=== PATIENT | male | born 1980 | race Caucasian/White ===

== ENCOUNTER 2016-05-31 15:00 | Emergency (ER) | payer BC, OTHER ==
[2016-05-31 15:08] VITALS: BP 134/87; RESP 18; TEMP 97.6
--- NOTE | 2016-05-31 15:37 | ED ---
Upper Extremity HPI - General Chief Complaint: Extremity Injury, Upper Stated Complaint: shoulder injury-[facility] Time Seen by Provider: 05/31/16 15:12 Source: patient, RN notes reviewed Mode of arrival: ambulatory Limitations: no limitations - History of Present Illness Initial Comments: Patient is a 36-year-old male presents to the emergency room for evaluation of right shoulder pain. Patient states he was at work and went to go pull at object and felt a sharp pain in his right shoulder. Patient states he has a history of 2 labrum tear surgeries in his right shoulder about 4 years ago. Patient states the surgery was not done in this area. Patient states that after he felt the pain today he was worried that he tore something again and was told by his supervisor type bar and segment to come to the emergency room to be evaluated. Patient states he has pain whenever he tries to move his shoulder. Patient denies taking anything for pain. Patient denies any numbness or tingling in his fingers. Patient states when he tore his labrum 4 years ago the pain was a lot worse than this incident. Patient denies any other injuries or complaints at this time. - Related Data Home Medications Medication Instructions Recorded Confirmed Buprenorphine HCl/Naloxone HCl 0.5 film SUBLINGUAL BID 02/14/15 05/31/16 [Suboxone 8 mg-2 mg Sl Film] Albuterol Inhaler [Ventolin Hfa 1 - 2 puff INHALATION RT-Q6H PRN 05/31/16 Inhaler] Allergies Allergy/AdvReac Type Severity Reaction Status Date / Time meperidine HCl [From Demerol] Allergy Rash/Hives Verified 05/31/16 15:19 shellfish derived [Shellfish] Allergy Swelling Verified 05/31/16 15:19 Review of Systems ROS Statement: Those systems with pertinent positive or pertinent negative responses have been documented in the HPI. ROS Other: All systems not noted in ROS Statement are negative. Past Medical History Past Medical History: Asthma History of Any Multi-Drug Resistant Organisms: None Reported Past Surgical History: Orthopedic Surgery Additional Past Surgical History / Comment(s): rt shoulder Past Psychological History: Anxiety Smoking Status: Former smoker Past Alcohol Use History: None Reported Past Drug Use History: None Reported General Exam - General Exam Comments Initial Comments: Sitting in exam room, no acute distress. Limitations: no limitations General appearance: alert, in no apparent distress Head exam: Present: atraumatic, normocephalic, normal inspection Eye exam: Present: normal appearance ENT exam: Present: normal exam Neck exam: Present: normal inspection Respiratory exam: Absent: respiratory distress Right Shoulder Exam: Present: normal inspection, tenderness (Proximal humerus). Absent: full ROM (Patient can extend about 90 and abduct about 75), swelling, ecchymosis, deformity, crepitus, tenderness over AC joint Upper Arm exam: Present: normal inspection, full ROM. Absent: tenderness Elbow exam: Present: normal inspection, full ROM. Absent: tenderness Neuro motor exam: Present: wrist extension intact Vascular: Present: normal capillary refill (Capillary refill less than 2 seconds ), radial pulse (2+), ulnar pulse (2+) Back exam: Present: normal inspection Neurological exam: Present: alert, oriented X3, CN II-XII intact, normal gait Psychiatric exam: Present: normal affect, normal mood Skin exam: Present: warm, dry, intact, normal color. Absent: rash Course Vital Signs 05/31/16 15:04 Temperature 97.6 F Respiratory 18 Rate Blood Pressure 134/87 Medical Decision Making - Medical Decision Making Patient is a 36-year-old male presents to the emergency room for evaluation of right shoulder pain. Right shoulder x-ray shows no acute findings. Advised patient to follow-up with commodity specialist if symptoms are not improving in 7-10 days. Patient states he understands everything that was discussed with him. Return parameters discussed. Case discussed with Dr. Claire. - Radiology Data Radiology results: report reviewed, image reviewed Disposition Clinical Impression: Right shoulder strain Disposition: HOME SELF-CARE Condition: Good Instructions: Shoulder Sprain (ED), Shoulder Pain (ED) Additional Instructions: Ice on and off for 10-15 minutes for the next 24-48 hours. Take Tylenol or Motrin as needed for pain. Please follow-up with commodity specialist in 7-10 days if symptoms are not improving. If new symptoms develop or symptoms worsen, please return to the ER. Referrals: Shahbaz Duran MD [Primary Care Provider] - 1-2 days Sourav Purcell MD [STAFF PHYSICIAN] - 06/07/16 Time of Disposition: 15:51
--- NOTE | 2016-05-31 15:47 | XR ---
EXAMINATION TYPE: XR shoulder complete RT DATE OF EXAM: 05/31/2016 3:40 PM CLINICAL HISTORY: Right shoulder pain after pushing injury yesterday. TECHNIQUE: Three views of the right shoulder are obtained. COMPARISON: Prior right shoulder x-ray June 25, 2012 FINDINGS: There is no acute fracture/dislocation evident in the right shoulder. Mild spurring at acr omioclavicular joint is redemonstrated. Glenohumeral joint is maintained. The visualized ribs are int act and unremarkable. IMPRESSION: There is no acute fracture or dislocation in the right shoulder.
== END 2016-05-31 16:00 | disposition home or self-care (01) ==
LOC: EC 15:00
DX: S46.911A Strain of unspecified muscle, fascia and tendon at shoulder and upper arm level, right arm, initial encounter (principal); Z91.013 Allergy to seafood; Z87.891 Personal history of nicotine dependence; Z79.899 Other long term (current) drug therapy; X50.9XXA Other and unspecified overexertion or strenuous movements or postures, initial encounter; Y99.8 Other external cause status
CPT/HCPCS: 99283

== ENCOUNTER 2017-02-11 16:20 | Emergency (ER) | payer BC ==
--- NOTE | 2017-02-11 18:01 | ED ---
Male Urogenital HPI - General Chief complaint: Urogenital Stated complaint: Male Time Seen by Provider: 02/11/17 17:27 Source: patient, RN notes reviewed Mode of arrival: ambulatory Limitations: no limitations - History of Present Illness Initial comments: 36-year-old male presents emergency Department chief complaint of urethral discharge. Patient states that it started yesterday. Patient states that that he had a history of this. Patient states he has had a new sexual partner. He states that she is asymptomatic this time. Patient states that he does have a little itchiness at his urethral opening. Denies any sores or lesions pains. Patient denies any abdominal pain denies fevers or chills. - Related Data Home Medications Medication Instructions Recorded Confirmed Buprenorphine HCl/Naloxone HCl 0.5 film SUBLINGUAL BID 02/14/15 02/11/17 [Suboxone 8 mg-2 mg Sl Film] Previous Rx's Medication Instructions Recorded Ciprofloxacin HCl [Cipro] 500 mg PO Q12HR #20 tablet 02/11/17 Allergies Allergy/AdvReac Type Severity Reaction Status Date / Time meperidine HCl [From Demerol] Allergy Rash/Hives Verified 02/11/17 17:48 shellfish derived [Shellfish] Allergy Swelling Verified 02/11/17 17:48 Review of Systems ROS Statement: Those systems with pertinent positive or pertinent negative responses have been documented in the HPI. ROS Other: All systems not noted in ROS Statement are negative. Past Medical History Past Medical History: Asthma History of Any Multi-Drug Resistant Organisms: None Reported Past Surgical History: Orthopedic Surgery Additional Past Surgical History / Comment(s): rt shoulder Past Psychological History: Anxiety Smoking Status: Former smoker Past Alcohol Use History: None Reported Past Drug Use History: None Reported General Exam Limitations: no limitations General appearance: alert, in no apparent distress Head exam: Present: atraumatic, normocephalic, normal inspection Respiratory exam: Present: normal lung sounds bilaterally. Absent: respiratory distress, wheezes, rales, rhonchi, stridor Cardiovascular Exam: Present: regular rate, normal rhythm, normal heart sounds. Absent: systolic murmur, diastolic murmur, rubs, gallop, clicks GI/Abdominal exam: Present: soft, normal bowel sounds. Absent: distended, tenderness, guarding, rebound, rigid exam: Present: normal inspection. Absent: urethral discharge, scrotal swelling, vertical testicular lie Course Vital Signs 02/11/17 17:19 Temperature 98.3 F Pulse Rate 81 Respiratory 18 Rate Blood Pressure 137/87 O2 Sat by Pulse 100 Oximetry Medical Decision Making - Medical Decision Making 36-year-old male presented for urethral drainage. Patient recent UTI/ urethritis. Patient was given Rocephin azithromycin. Patient be discharged on ciprofloxacin. Return parameters were discussed. - Lab Data Lab Results 02/11/17 Range/Units 18:37 Urine Color Yellow Urine Appearance Clear (Clear) Urine pH 6.5 (5.0-8.0) Ur Specific [place] 1.024 (1.001-1.035) Urine Protein Trace H (Negative) Urine Glucose (UA) Negative (Negative) Urine Ketones Negative (Negative) Urine Blood Negative (Negative) Urine Nitrite Negative (Negative) Urine Bilirubin Negative (Negative) Urine Urobilinogen <2.0 (<2.0) mg/dL Ur Leukocyte Esterase Large H (Negative) Urine RBC 4 (0-5) /hpf Urine WBC 50 H (0-5) /hpf Urine Bacteria Occasional H (None) /hpf Urine Mucus Rare H (None) /hpf Urine Yeast (Budding) Rare H (None) /hpf Disposition Clinical Impression: UTI (urinary tract infection), Urethritis Disposition: HOME SELF-CARE Condition: Stable Instructions: Urinary Tract Infection in Men (ED) Additional Instructions: Please return to the Emergency Department if symptoms worsen or any other concerns. Prescriptions: Ciprofloxacin HCl [Cipro] 500 mg PO Q12HR #20 tablet Referrals: Shahbaz Duran MD [Primary Care Provider] - 1-2 days Time of Disposition: 18:46
[2017-02-11 18:43] LABS: Appearance,Urine Clear (Clear); Bacteria,Urine Occasional /hpf; Bilirubin,Urine Negative (Negative); Glucose,Urine (UA) Negative (Negative); Ketones,Urine Negative (Negative); Leukocyte Esterase,Urine Large (Negative); Mucus,Urine Rare /hpf; Nitrite,Urine Negative (Negative); PH, Urine 6.5 (5.0-8.0); Particle Count 957; Protein,Urine Trace (Negative); RBC,Urine 4 /hpf (0-5); Specific Gravity,Urine 1.024 (1.001-1.035); UA Billing (MACRO vs. MICRO) MICRO; Urobilinogen,Urine <2.0 mg/dL (<2.0); WBC,Urine 50 /hpf (0-5)
[2017-02-11] MEDS ORDERED: AZITHROMYCIN 250 MG TAB PO STA (18:44)
[2017-02-11] MEDS ORDERED: cefTRIAXone 250 MG VIAL IM STA (18:44)
[2017-02-11 19:16] VITALS: BP 153/92; PULSE 75; RESP 16; TEMP 97.9
== END 2017-02-11 19:25 | disposition home or self-care (01) ==
LOC: EC 16:20
DX: N34.2 Other urethritis (principal); Z87.891 Personal history of nicotine dependence; Z79.899 Other long term (current) drug therapy; Z88.5 Allergy status to narcotic agent; Z91.013 Allergy to seafood
CPT/HCPCS: 99283 ×2; 96372 ×2; 81001; 87086; J0696; 87491; 87591

== ENCOUNTER → 2020-01-23 | Outpatient (CLI) | payer BC | END | disposition home or self-care (01) | LOC: LABWHC1 10:25 | PROVIDERS: ATTEND Emergency Medicine | DX: Z20.828 Contact with and (suspected) exposure to other viral communicable diseases (principal) ==

== ENCOUNTER → 2020-04-30 | Outpatient (CLI) | payer BC | END | disposition home or self-care (01) | LOC: LABWHC1 12:58 | PROVIDERS: ATTEND Emergency Medicine | DX: Z20.822 Contact with and (suspected) exposure to COVID-19 (principal) | CPT/HCPCS: U0003; C9803; U0005 ==

== ENCOUNTER 2020-09-15 15:20 | Emergency (ER) | payer BC ==
[2020-09-15 15:31] VITALS: RESP 16; TEMP 98.2
--- NOTE | 2020-09-15 15:55 | ED ---
General Adult HPI - General Chief complaint: Chest Pain Stated complaint: Chest Pain/Sore Throat Time Seen by Provider: 09/15/20 15:37 Source: patient, RN notes reviewed, old records reviewed Mode of arrival: ambulatory Limitations: no limitations - History of Present Illness Initial comments: 40-year-old male presents with 2 complaints, he has some suspected ALLERGIC reaction to the vapor from vap pen. He states that he had switched products hand developed some irritation to his throat as well as swollen lymph notes. Taken Benadryl with only minimal improvement. No difficulty breathing. Second complaint of left upper chest pain which is been present for the past several days. This does radiate to the left arm. No previous history of CAD no history of DVT or PE. No cough or fever. No difficulty breathing. No vomiting or diarrhea. - Related Data Home Medications Medication Instructions Recorded Confirmed Buprenorphine HCl/Naloxone HCl 0.5 film SUBLINGUAL BID 02/14/15 02/11/17 [Suboxone 8 mg-2 mg Sl Film] Previous Rx's Medication Instructions Recorded Ciprofloxacin HCl [Cipro] 500 mg PO Q12HR #20 tablet 02/11/17 Allergies Allergy/AdvReac Type Severity Reaction Status Date / Time meperidine HCl [From Demerol] Allergy Rash/Hives Verified 02/11/17 17:48 shellfish derived [Shellfish] Allergy Swelling Verified 02/11/17 17:48 Review of Systems ROS Statement: Those systems with pertinent positive or pertinent negative responses have been documented in the HPI. ROS Other: All systems not noted in ROS Statement are negative. Past Medical History Past Medical History: Asthma History of Any Multi-Drug Resistant Organisms: None Reported Past Surgical History: Orthopedic Surgery Additional Past Surgical History / Comment(s): rt shoulder Past Psychological History: Anxiety Smoking Status: Current every day smoker, Vaper Past Alcohol Use History: None Reported Past Drug Use History: Marijuana General Exam Limitations: no limitations General appearance: alert, in no apparent distress Head exam: Present: atraumatic, normocephalic Eye exam: Present: normal appearance, PERRL ENT exam: Absent: normal oropharynx (There is diffuse pharyngeal erythema, no exudate, no tonsillar swelling) Neck exam: Present: normal inspection. Absent: tenderness, meningismus Respiratory exam: Present: normal lung sounds bilaterally. Absent: respiratory distress, wheezes, rales Cardiovascular Exam: Present: regular rate, normal rhythm GI/Abdominal exam: Present: soft. Absent: distended, tenderness, guarding Extremities exam: Present: normal inspection, normal capillary refill. Absent: pedal edema, calf tenderness Back exam: Present: normal inspection, full ROM Neurological exam: Present: alert, oriented X3. Absent: CN II-XII intact, motor sensory deficit Psychiatric exam: Present: normal affect, normal mood Skin exam: Present: warm, dry, intact. Absent: cyanosis, diaphoretic Course Vital Signs 09/15/20 09/15/20 15:28 15:31 Temperature 98.2 F Pulse Rate 96 Respiratory 18 16 Rate Blood Pressure 142/89 O2 Sat by Pulse 98 Oximetry EKG Findings - EKG Comments: EKG Findings:: EKG: Normal sinus rhythm, left atrial enlargement, rate of 80, [place] interval 150, QRS duration 96, QTC 422, no ST segment elevation Medical Decision Making - Medical Decision Making 40-year-old male who had presented with 2 complaints, some left upper chest pain, atypical in nature, and throat swelling and pain after using a vap pen. Patient does have some pharyngeal erythema, no tonsillar swelling or exudate. Rapid strep negative. He has a normal CBC, normal CMP, negative troponin, nonischemic EKG, chest x-ray negative for pneumothorax or acute finding. Patient reassured. He will use Benadryl for his suspected ALLERGIC pharyngitis or secondary to just irritation. He will abstain from using this tobacco product. Return parameters given patient will follow with primary care physician. - Lab Data Result diagrams: 09/15/20 15:51 09/15/20 15:51 Lab Results 09/15/20 09/15/20 09/15/20 Range/Units 15:51 15:51 15:51 WBC 6.8 (3.8-10.6) k/uL RBC 4.38 (4.30-5.90) m/uL Hgb 13.8 (13.0-17.5) gm/dL Hct 38.8 L (39.0-53.0) % MCV 88.5 (80.0-100.0) fL MCH 31.4 (25.0-35.0) pg MCHC 35.5 (31.0-37.0) g/dL RDW 11.7 (11.5-15.5) % Plt Count 278 (150-450) k/uL MPV 6.6 Neutrophils % 53 % Lymphocytes % 38 % Monocytes % 5 % Eosinophils % 3 % Basophils % 1 % Neutrophils # 3.5 (1.3-7.7) k/uL Lymphocytes # 2.5 (1.0-4.8) k/uL Monocytes # 0.4 (0-1.0) k/uL Eosinophils # 0.2 (0-0.7) k/uL Basophils # 0.0 (0-0.2) k/uL PT 10.3 (9.0-12.0) sec INR 1.0 (<1.2) APTT 24.2 (22.0-30.0) sec Sodium 139 (137-145) mmol/L Potassium 4.3 (3.5-5.1) mmol/L Chloride 103 (98-107) mmol/L Carbon Dioxide 29 (22-30) mmol/L Anion Gap 7 mmol/L BUN 19 (9-20) mg/dL Creatinine 0.90 (0.66-1.25) mg/dL Est GFR (CKD-EPI)AfAm >90 (>60 ml/min/1.73 sqM) Est GFR (CKD-EPI)NonAf >90 (>60 ml/min/1.73 sqM) Glucose 93 (74-99) mg/dL Calcium 9.5 (8.4-10.2) mg/dL Magnesium 2.1 (1.6-2.3) mg/dL Total Bilirubin 0.4 (0.2-1.3) mg/dL AST 32 (17-59) U/L ALT 18 (4-49) U/L Alkaline Phosphatase 60 (38-126) U/L Troponin I (0.000-0.034) ng/mL Total Protein 6.6 (6.3-8.2) g/dL Albumin 4.4 (3.5-5.0) g/dL Lipase 48 (23-300) U/L Group A Strep Rapid (Negative) 09/15/20 09/15/20 Range/Units 15:51 15:51 WBC (3.8-10.6) k/uL RBC (4.30-5.90) m/uL Hgb (13.0-17.5) gm/dL Hct (39.0-53.0) % MCV (80.0-100.0) fL MCH (25.0-35.0) pg MCHC (31.0-37.0) g/dL RDW (11.5-15.5) % Plt Count (150-450) k/uL MPV Neutrophils % % Lymphocytes % % Monocytes % % Eosinophils % % Basophils % % Neutrophils # (1.3-7.7) k/uL Lymphocytes # (1.0-4.8) k/uL Monocytes # (0-1.0) k/uL Eosinophils # (0-0.7) k/uL Basophils # (0-0.2) k/uL PT (9.0-12.0) sec INR (<1.2) APTT (22.0-30.0) sec Sodium (137-145) mmol/L Potassium (3.5-5.1) mmol/L Chloride (98-107) mmol/L Carbon Dioxide (22-30) mmol/L Anion Gap mmol/L BUN (9-20) mg/dL Creatinine (0.66-1.25) mg/dL Est GFR (CKD-EPI)AfAm (>60 ml/min/1.73 sqM) Est GFR (CKD-EPI)NonAf (>60 ml/min/1.73 sqM) Glucose (74-99) mg/dL Calcium (8.4-10.2) mg/dL Magnesium (1.6-2.3) mg/dL Total Bilirubin (0.2-1.3) mg/dL AST (17-59) U/L ALT (4-49) U/L Alkaline Phosphatase (38-126) U/L Troponin I <0.012 (0.000-0.034) ng/mL Total Protein (6.3-8.2) g/dL Albumin (3.5-5.0) g/dL Lipase (23-300) U/L Group A Strep Rapid Negative (Negative) Disposition Clinical Impression: Atypical chest pain, Pharyngitis Disposition: HOME SELF-CARE Condition: Good Instructions (If sedation given, give patient instructions): Chest Pain (ED), Pharyngitis (ED) Is patient prescribed a controlled substance at d/c from ED?: No Referrals: Shahbaz Duran MD [Primary Care Provider] - 1-2 days Time of Disposition: 16:36
[2020-09-15 16:04] LABS: Basophils % (A) 1 %; Eosinophils # (A) 0.2 k/uL (0-0.7); Eosinophils % (A) 3 %; HCT 38.8 % (39.0-53.0); HGB 13.8 gm/dL (13.0-17.5); Lymphocytes # (A) 2.5 k/uL (1.0-4.8); Lymphocytes % (A) 38 %; MCH 31.4 pg (25.0-35.0); MCHC 35.5 g/dL (31.0-37.0); MCV 88.5 fL (80.0-100.0); Mean Platelet Volume 6.6; Monocytes # (A) 0.4 k/uL (0-1.0); Monocytes % (A) 5 %; Neutrophils # (A) 3.5 k/uL (1.3-7.7); Neutrophils % (A) 53 %; Platelet Count 278 k/uL (150-450); RBC 4.38 m/uL (4.30-5.90); RDW 11.7 % (11.5-15.5); WBC 6.8 k/uL (3.8-10.6)
--- NOTE | 2020-09-15 16:06 | XR ---
EXAMINATION TYPE: XR chest 2V DATE OF EXAM: 09/15/2020 COMPARISON: Chest x-ray 02/28/2015 HISTORY: Chest pain TECHNIQUE: Frontal and lateral views of the chest are obtained. FINDINGS: There is no focal air space opacity, pleural effusion, or pneumothorax seen. The cardiac silhouette size is within normal limits. The osseous structures are intact, there is a spinal curva ture. IMPRESSION: No acute cardiopulmonary process.
[2020-09-15 16:09] LABS: Chloride 103 mmol/L (98-107)
[2020-09-15 16:10] LABS: Partial Thromboplastin Time 24.2 sec (22.0-30.0); Prothrombin Time 10.3 sec (9.0-12.0)
[2020-09-15 16:11] LABS: ALT 18 U/L (4-49); AST 32 U/L (17-59); African American GFR (CKD) >90 (>60 ml/min/1.73 sqM); Albumin 4.4 g/dL (3.5-5.0); Alkaline Phosphatase 60 U/L (38-126); Anion Gap 7 mmol/L; Blood Urea Nitrogen 19 mg/dL (9-20); Calcium 9.5 mg/dL (8.4-10.2); Carbon Dioxide 29 mmol/L (22-30); Glucose 93 mg/dL (74-99); Lipase 48 U/L (23-300); Magnesium 2.1 mg/dL (1.6-2.3); Non-African American GFR(CKD) >90 (>60 ml/min/1.73 sqM); Potassium 4.3 mmol/L (3.5-5.1); Sodium 139 mmol/L (137-145); Total Bilirubin 0.4 mg/dL (0.2-1.3); Total Protein 6.6 g/dL (6.3-8.2)
[2020-09-15 16:40] VITALS: BP 126/88; PULSE 69
== END 2020-09-15 17:11 | disposition home or self-care (01) ==
LOC: EC 15:20
DX: R07.89 Other chest pain (principal); J02.9 Acute pharyngitis, unspecified; F17.200 Nicotine dependence, unspecified, uncomplicated; J45.909 Unspecified asthma, uncomplicated; F12.90 Cannabis use, unspecified, uncomplicated
CPT/HCPCS: 36415; 71046; 80053; 83690; 83735; 84484; 85025; 85610; 85730; 87081; 87430; 93005; 99285

== ENCOUNTER 2022-03-18 11:15 | Emergency (ER) | payer BC, OTHER ==
[2022-03-18] MEDS ORDERED: MD COMMUNICATION TO PHARMACY 1 EACH MISC PO STA (12:21)
--- NOTE | 2022-03-18 12:24 | ED ---
General Adult HPI - General Chief complaint: Recheck/Abnormal Lab/Rx Stated complaint: med refill Time Seen by Provider: 03/18/22 12:08 Source: patient, RN notes reviewed Mode of arrival: ambulatory Limitations: no limitations - History of Present Illness Initial comments: Patient states that he is trying to cut himself off of Suboxone. He is down to 45 per month. Patient states that he has had some problems with transportation. Patient states that his doctor's office stated that it would be open on Sunday however, it was not. Patient now out of Suboxone until Sunday. Patient has no other complaints. Denies illicit drug abuse or alcohol abuse. No headache, no fever or chills, no changes in vision or hearing, no sore throat or difficulty with speech, no neck pain, no chest pain or shortness of breath, no abdominal pain, no nausea or vomiting, no changes in urination or bowel movements, no numbness or tingling, no extremity pain, no skin rashes or lesions. Past medical, surgical, social, and family history reviewed. - Related Data Home Medications Medication Instructions Recorded Confirmed Buprenorphine HCl/Naloxone HCl 0.5 film SUBLINGUAL BID 02/14/15 09/15/20 [Suboxone 8 mg-2 mg Sl Film] Dextroamphetamine/Amphetamine 25 mg PO DAILY 09/15/20 09/15/20 [Adderall Xr] Allergies Allergy/AdvReac Type Severity Reaction Status Date / Time meperidine HCl [From Demerol] Allergy Rash/Hives Verified 03/18/22 11:58 shellfish derived [Shellfish] Allergy Swelling Verified 03/18/22 11:58 Review of Systems ROS Statement: Those systems with pertinent positive or pertinent negative responses have been documented in the HPI. ROS Other: All systems not noted in ROS Statement are negative. Past Medical History Past Medical History: Asthma History of Any Multi-Drug Resistant Organisms: None Reported Past Surgical History: Orthopedic Surgery Additional Past Surgical History / Comment(s): rt shoulder Past Psychological History: Anxiety Smoking Status: Current every day smoker, Vaper Past Alcohol Use History: None Reported Past Drug Use History: Marijuana General Exam Limitations: no limitations General appearance: alert, in no apparent distress Head exam: Present: atraumatic, normocephalic, normal inspection Eye exam: Present: normal appearance, PERRL, EOMI ENT exam: Present: normal exam, normal oropharynx, normal external ear exam Neck exam: Present: normal inspection Respiratory exam: Present: normal lung sounds bilaterally. Absent: respiratory distress, wheezes, rales, rhonchi, stridor Cardiovascular Exam: Present: regular rate, normal rhythm, normal heart sounds. Absent: systolic murmur, diastolic murmur, rubs, gallop, clicks GI/Abdominal exam: Present: soft. Absent: tenderness Neurological exam: Present: alert, oriented X3, CN II-XII intact Psychiatric exam: Present: normal affect, normal mood Skin exam: Present: warm, dry, intact, normal color. Absent: rash Medical Decision Making - Medical Decision Making Patient presents requesting a prescription for Suboxone to get him through the weekend. I did explain this takes a special certification. We'll try to obtain one dose. I did agree to give the patient a Tylenol with Codeine starter pack since he has had no visits for this previously. Patient was told to return to the ER for any signs or symptoms worsen. Told to return immediately if any other problems arise. All questions answered. Treatment plan discussed. Patient in agreement Every effort has been made to ensure accuracy of this dictation. However, due to the limitations of electronic medical records and dictation devices, errors in charting still occur. Arise or Dr. Wagner Disposition Clinical Impression: Encounter for medication refill Disposition: HOME SELF-CARE Condition: Stable Instructions (If sedation given, give patient instructions): Chronic Pain (ED) Additional Instructions: Follow-up with your regular physician as directed. Return to the ER immediately if any symptoms worsen, new symptoms arise, or any other problems develop. Is patient prescribed a controlled substance at d/c from ED?: No Referrals: Shahbaz Duran MD [Primary Care Provider] - 1-2 days Time of Disposition: 12:53
[2022-03-18] MEDS ORDERED: ACET/COD 300 MG/30 MG STARTER PACK 6 TAB BTL PO STA (12:52)
[2022-03-18] MEDS ORDERED: BUPRENORPHINE-NALOX 8-2 MG TAB 1 EACH TAB.SUBL SL ONE (13:30)
== END 2022-03-18 13:44 | disposition home or self-care (01) ==
LOC: EC 11:15
DX: Z76.0 Encounter for issue of repeat prescription (principal); J45.909 Unspecified asthma, uncomplicated; F41.9 Anxiety disorder, unspecified; F12.90 Cannabis use, unspecified, uncomplicated; Z87.891 Personal history of nicotine dependence; Z88.5 Allergy status to narcotic agent; Z91.013 Allergy to seafood
CPT/HCPCS: 99281